=== PATIENT | male | born 1975 | race Caucasian/White ===

== ENCOUNTER 2019-03-04 19:53 | Emergency (ER) | payer OTHER ==
[~2019-03-04] VITALS: Ht 177.8 cm; Wt 97.1 kg
[2019-03-04] MEDS ORDERED: TRAZODONE 150150 M1 PO (20:42)
[2019-03-04] MEDS ORDERED: IBUPROFEN 600600 M1 PO ×2 (20:57→21:06)
[2019-03-04] MEDS ORDERED: KEFLEX500 M1 PO ×2 (20:57→21:06)
[2019-03-04] MEDS ORDERED: NORCO 5-325 TA1 EACH PO (21:09)
[2019-03-04 22:00] VITALS: BP 126/81
== END 2019-03-04 22:06 | disposition home or self-care (01) ==
LOC: M.ERS 19:53
DX: S61.432A Puncture wound without foreign body of left hand, initial encounter (principal); G47.00 Insomnia, unspecified; W22.8XXA Striking against or struck by other objects, initial encounter; Y93.89 Activity, other specified; Y92.89 Other specified places as the place of occurrence of the external cause; Y99.8 Other external cause status

== ENCOUNTER 2019-05-18 12:01 | Emergency (ER) | payer OTHER ==
[~2019-05-18] VITALS: Ht 177.8 cm; Wt 86.2 kg
[~2019-05-18 12:01] MED LIST: IBUPROFEN 600600 M1 PO; KEFLEX500 M1 PO; NORCO 5-325 TA1 EACH PO; TRAZODONE 150150 M1 PO
[2019-05-18 12:52] LABS: ABSOLUTE BASOPHILS 0.1 thou/uL (0.0-0.2); ABSOLUTE EOSINOPHILS 0.3 thou/uL (0.0-0.7); ABSOLUTE LYMPHOCYTES 2.7 thou/uL (0.8-5.3); ABSOLUTE MONOCYTES 0.7 thou/uL (0.0-1.2); ABSOLUTE NEUTROPHILS 8.4 thou/uL (1.6-8.1); EOSINOPHILS 2.4 %; HEMATOCRIT 47.6 % (42.0-52.0); HEMOGLOBIN 15.9 gm/dL (14.0-18.0); LYMPHOCYTES 21.7 %; MCH 28.3 pg (26.0-34.0); MCHC 33.4 g/dL (28.0-37.0); MCV 84.6 fL (80.0-100.0); MONOCYTES 5.8 %; MPV 8.9 fl. (7.2-11.1); NUCLEATED RBCS 0 /100WBC; PLATELET COUNT* 233 thou/uL (150-400); POLYS 69.1 %; RBC 5.62 mil/uL (4.50-6.00); RDW-CV 14.2 % (10.5-14.5); WBC 12.2 thou/uL (4.0-11.0)
[2019-05-18 13:03] LABS: POTASSIUM 3.8 mmol/L (3.5-5.1)
[2019-05-18 13:08] LABS: ALBUMIN 3.9 g/dL (3.4-5.0); TOTAL BILIRUBIN 0.6 mg/dL (<0.1-1.0); TOTAL PROTEIN 7.5 g/dL (6.4-8.2)
[2019-05-18 13:27] LABS: URINE BILIRUBIN NEGATIVE (Negative); URINE BLOOD NEGATIVE (Negative); URINE CLARITY CLEAR; URINE COLOR YELLOW; URINE GLUCOSE-RANDOM NEGATIVE (Negative); URINE KETONES NEGATIVE (Negative); URINE LEUKOCYTES-REFLEX NEGATIVE (Negative); URINE NITRITE-REFLEX NEGATIVE (Negative); URINE PROTEIN NEGATIVE (Negative); URINE SPECIFIC GRAVITY 1.025 (1.005-1.030); URINE UROBILINOGEN 0.2 E.U./dl (0.2-1.0)
[2019-05-18 13:35] LABS: AMP/METHAMP POSITIVE (Negative); BARBITURATES Negative (Negative); BENZODIAZEPINES POSITIVE (Negative); COCAINE Negative (Negative); METHADONE Negative (Negative); OPIATES Negative (Negative); PCP Negative (Negative); THC Negative (Negative)
[2019-05-18] MEDS ORDERED: VISTARIL 25 MG25 M1 PO (13:52)
[2019-05-18 14:17] VITALS: BP 131/82
--- NOTE | 2019-05-18 16:49 | EKG ---
[place] [address] ELECTROCARDIOGRAM REPORT Name: BAN GIVENS Room: [facility]#: [id number] Admission: 05/18/19 Attend Phys: Discharge: 05/18/19 Date of : 73 Report #: [id number] THIS REPORT FOR: //name// [facility] ED Test Date: 2019-05-18 Test Time: 12:31:33 Pat Name: BAN GIVENS Department: Room: Gender: M Reimbursement Manager: ERIK : 1975 Requested By: Yvonne Evangelista Order Number: [id number] MD: Robel Parry Measurements Intervals [place] Rate: 121 P: 44 VA: 136 QRS: 37 QRSD: 89 T: 71 QT: 312 QTc: 443 Interpretive Statements Sinus tachycardia Borderline T wave abnormalities No previous ECG available for comparison Electronically Signed On 05-18-2019 16:49:20 CDT by Robel Parry [email or web address] <ELECTRONICALLY SIGNED> By: Robel Parry MD, [facility] 05/18/19 1649 1231 1231 Robel Parry MD, FACC /EPI
== END 2019-05-18 14:18 | disposition home or self-care (01) ==
LOC: M.ERS 12:01
PROVIDERS: Physician Assistant
DX: F15.129 Other stimulant abuse with intoxication, unspecified (principal); T42.4X5A Adverse effect of benzodiazepines, initial encounter; Z79.899 Other long term (current) drug therapy; Y92.89 Other specified places as the place of occurrence of the external cause

== ENCOUNTER 2020-05-10 22:58 | Emergency (ER) | payer OTHER ==
[~2020-05-10] VITALS: Ht 177.8 cm; Wt 90.7 kg
[~2020-05-10 22:58] MED LIST changes: +VISTARIL 25 MG25 M1 PO
[2020-05-10] MEDS ORDERED: TRAMADOL 50 MG50 MG PO (23:35)
[2020-05-10] MEDS ORDERED: BACLOFEN 10MG T10 MG PO (23:35)
[2020-05-10] MEDS ORDERED: FLEXERIL PO (23:35)
[2020-05-10 23:47] VITALS: BP 146/87
== END 2020-05-10 23:50 | disposition home or self-care (01) ==
LOC: M.ERS 22:58
DX: S39.012A Strain of muscle, fascia and tendon of lower back, initial encounter (principal); G47.00 Insomnia, unspecified; Z79.899 Other long term (current) drug therapy; X50.3XXA Overexertion from repetitive movements, initial encounter; Y93.89 Activity, other specified; Y92.89 Other specified places as the place of occurrence of the external cause; Y99.8 Other external cause status

== ENCOUNTER 2020-05-14 21:30 | Emergency (ER) | payer OTHER ==
[~2020-05-14] VITALS: Ht 177.8 cm; Wt 90.7 kg
[~2020-05-14 21:30] MED LIST changes: +BACLOFEN 10MG T10 MG PO; +FLEXERIL PO; +TRAMADOL 50 MG50 MG PO
[2020-05-14] MEDS ORDERED: GENTAK5 ML TOP (22:22)
[2020-05-14 22:33] VITALS: BP 149/93
== END 2020-05-14 22:34 | disposition home or self-care (01) ==
LOC: M.ERS 21:30
DX: H01.001 Unspecified blepharitis right upper eyelid (principal)

== ENCOUNTER 2020-06-19 13:14 | Emergency (ER) | payer OTHER ==
[~2020-06-19] VITALS: Ht 177.8 cm; Wt 90.7 kg
[~2020-06-19 13:14] MED LIST changes: +GENTAK5 ML TOP
[2020-06-19 14:10] VITALS: BP 150/73
== END 2020-06-19 14:12 | disposition left against medical advice (07) ==
LOC: M.ERS 13:14
DX: Z53.21 Procedure and treatment not carried out due to patient leaving prior to being seen by health care provider (principal)

== ENCOUNTER 2020-07-12 10:28 | Emergency (ER) | payer OTHER ==
[~2020-07-12] VITALS: Ht 180.3 cm; Wt 105.0 kg
[2020-07-12 11:06] LABS: ABSOLUTE BASOPHILS 0.2 thou/uL (0.0-0.2); ABSOLUTE EOSINOPHILS 0.6 thou/uL (0.0-0.7); ABSOLUTE LYMPHOCYTES 3.5 thou/uL (0.8-5.3); ABSOLUTE MONOCYTES 0.8 thou/uL (0.0-1.2); ABSOLUTE NEUTROPHILS 5.9 thou/uL (1.6-8.1); BASOPHILS 1.4 %; EOSINOPHILS 5.2 %; HEMATOCRIT 43.3 % (42.0-52.0); HEMOGLOBIN 15.1 gm/dL (14.0-18.0); LYMPHOCYTES 31.9 %; MCH 29.2 pg (26.0-34.0); MCHC 34.8 g/dL (28.0-37.0); MCV 83.9 fL (80.0-100.0); MONOCYTES 7.3 %; MPV 9.2 fl. (7.2-11.1); NUCLEATED RBCS 0 /100WBC; PLATELET COUNT* 221 thou/uL (150-400); POLYS 54.2 %; RBC 5.16 mil/uL (4.50-6.00); WBC 10.8 thou/uL (4.0-11.0)
[2020-07-12 11:20] LABS: ALBUMIN 3.8 g/dL (3.4-5.0); CREATININE 0.9 mg/dL (0.6-1.3); POTASSIUM 3.1 mmol/L (3.5-5.1); TOTAL BILIRUBIN 0.2 mg/dL (<0.1-1.0); TOTAL PROTEIN 7.1 g/dL (6.4-8.2)
[2020-07-12 11:25] LABS: CALCIUM 7.9 mg/dL (8.5-10.1)
[2020-07-12 15:47] VITALS: BP 143/81
--- NOTE | 2020-07-13 09:30 | EKG ---
[place] [address] ELECTROCARDIOGRAM REPORT Name: BAN GIVENS Room: [facility]#: [id number] Admission: 07/12/20 Attend Phys: Discharge: 07/12/20 Date of : 73 Date of Service: 07/12/20 1042 Report #: [id number] THIS REPORT FOR: //name// [facility] ED Test Date: 2020-07-12 Test Time: 10:42:16 Pat Name: BAN GIVENS Department: Room: Gender: Benzene Washer: JRvickey : 1975 Requested By: Beatrice Montoya Order Number: [id number] MD: Orlando Alonzo Measurements Intervals [place] Rate: 97 P: 39 NC: 161 QRS: 33 QRSD: 107 T: 42 QT: 358 QTc: 455 Interpretive Statements Sinus rhythm RSR' in V1 or V2, right VCD Compared to ECG 05/18/2019 12:31:33 RSR' in V1 or V2 now present Sinus tachycardia no longer present T-wave abnormality no longer present Electronically Signed On 07-13-2020 9:30:39 CDT by Orlando Alonzo [email or web address] <ELECTRONICALLY SIGNED> By: Orlando Alonzo MD, FAC 07/13/20 0930 1042 1042 Orlando Alonzo MD, FAC /EPI
== END 2020-07-12 15:49 | disposition left against medical advice (07) ==
LOC: M.ERS 10:28
PROVIDERS: Personal Emergency Response Attendant
DX: F10.129 Alcohol abuse with intoxication, unspecified (principal); Y90.6 Blood alcohol level of 120-199 mg/100 ml; F91.9 Conduct disorder, unspecified

== ENCOUNTER 2020-07-29 16:05 | Emergency (ER) | payer OTHER ==
[~2020-07-29] VITALS: Ht 177.8 cm; Wt 86.2 kg
[2020-07-29 16:14] VITALS: BP 139/82
[2020-07-29] MEDS ORDERED: NAPROSYN500 MG PO (16:49)
[2020-07-29] MEDS ORDERED: NORCO 5-325 TA1 EAC2 PO (16:49)
== END 2020-07-29 17:22 | disposition home or self-care (01) ==
LOC: M.ERS 16:05
DX: M25.511 Pain in right shoulder (principal); M25.512 Pain in left shoulder; M79.641 Pain in right hand; M79.642 Pain in left hand; F17.210 Nicotine dependence, cigarettes, uncomplicated

== ENCOUNTER 2020-08-16 08:28 | Emergency (ER) | payer OTHER ==
[~2020-08-16] VITALS: Ht 177.8 cm; Wt 86.2 kg
[~2020-08-16 08:28] MED LIST changes: +NAPROSYN500 MG PO; +NORCO 5-325 TA1 EAC2 PO
[2020-08-16] MEDS ORDERED: NORCO 5-325 TA1 EAC2 PO (08:50)
[2020-08-16] MEDS ORDERED: VOLTAREN GEL 1100 G1 TOP (08:50)
[2020-08-16 09:06] VITALS: BP 134/82
== END 2020-08-16 09:07 | disposition home or self-care (01) ==
LOC: M.ERS 08:28
DX: M13.832 Other specified arthritis, left wrist (principal); M13.831 Other specified arthritis, right wrist

== ENCOUNTER 2020-09-11 11:09 | Emergency (ER) | payer OTHER ==
[~2020-09-11] VITALS: Ht 177.8 cm; Wt 88.5 kg
[~2020-09-11 11:09] MED LIST changes: +VOLTAREN GEL 1100 G1 TOP
[2020-09-11] MEDS ORDERED: NAPROSYN500 MG PO (11:49)
[2020-09-11] MEDS ORDERED: NORCO 5-325 TA1 EAC2 PO (11:49)
[2020-09-11 12:43] VITALS: BP 163/88
== END 2020-09-11 12:44 | disposition home or self-care (01) ==
LOC: M.ERS 11:09
DX: M17.12 Unilateral primary osteoarthritis, left knee (principal)

== ENCOUNTER 2020-12-15 08:57 | Emergency (ER) | payer OTHER ==
[~2020-12-15] VITALS: Ht 180.3 cm; Wt 90.7 kg
[2020-12-15] MEDS ORDERED: ADVIL100 M3 PO (09:10)
[2020-12-15] MEDS ORDERED: FLEXERIL PO (09:32)
[2020-12-15 09:40] VITALS: BP 153/85
== END 2020-12-15 09:41 | disposition home or self-care (01) ==
LOC: M.ERS 08:57
DX: M54.5 Low back pain (principal); M72.2 Plantar fascial fibromatosis

== ENCOUNTER 2021-05-15 21:45 | Emergency (ER) | payer OTHER ==
[~2021-05-15] VITALS: Ht 177.8 cm; Wt 90.7 kg
[~2021-05-15 21:45] MED LIST changes: +ADVIL100 M3 PO
[2021-05-15] MEDS ORDERED: ZITHROMAX250 MG PO (22:50)
[2021-05-15 22:55] VITALS: BP 166/86
== END 2021-05-15 22:56 | disposition home or self-care (01) ==
LOC: M.ERS 21:45
DX: J40 Bronchitis, not specified as acute or chronic (principal); Z20.822 Contact with and (suspected) exposure to COVID-19; F17.290 Nicotine dependence, other tobacco product, uncomplicated

== ENCOUNTER 2021-09-15 02:39 | Emergency (ER) | payer OTHER ==
[~2021-09-15] VITALS: Ht 180.3 cm; Wt 90.7 kg
[~2021-09-15 02:39] MED LIST changes: +ZITHROMAX250 MG PO
[2021-09-15] MEDS ORDERED: MOBIC7.5 MG PO (03:20)
[2021-09-15] MEDS ORDERED: HYDROCODON-ACE1 EAC8 PO (03:20)
[2021-09-15 03:31] VITALS: BP 169/87
== END 2021-09-15 03:32 | disposition home or self-care (01) ==
LOC: M.ERS 02:39
DX: M25.562 Pain in left knee (principal); M19.90 Unspecified osteoarthritis, unspecified site

== ENCOUNTER 2021-10-24 23:02 | Emergency (ER) | payer OTHER ==
[~2021-10-24] VITALS: Ht 180.3 cm; Wt 90.7 kg
[~2021-10-24 23:02] MED LIST changes: +HYDROCODON-ACE1 EAC8 PO; +MOBIC7.5 MG PO
[2021-10-25 00:16] LABS: INFLUENZA A ANTIGEN Negative (Negative); INFLUENZA B ANTIGEN Negative (Negative)
[2021-10-25] MEDS ORDERED: ACETAMINOPHEN-1 EAC2 PO (00:52)
[2021-10-25 01:08] VITALS: BP 130/82
== END 2021-10-25 01:10 | disposition home or self-care (01) ==
LOC: M.ERS 23:02
PROVIDERS: Personal Emergency Response Attendant
DX: M25.562 Pain in left knee (principal); Z20.822 Contact with and (suspected) exposure to COVID-19; R06.2 Wheezing; G89.29 Other chronic pain; J84.10 Pulmonary fibrosis, unspecified; F17.210 Nicotine dependence, cigarettes, uncomplicated; M19.90 Unspecified osteoarthritis, unspecified site